=== PATIENT | male | born 1965 | race Caucasian/White ===

== ENCOUNTER 2020-07-31 03:32 | Inpatient (IN) | payer BC ==
[~2020-07-31] VITALS: Ht 188 cm; Wt 120.0 kg
--- OUTSIDE RECORDS SUMMARY | 2020-07-31 03:34 | XMS ---
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 [facility] has no Care Guidelines for this patient. Thomas VISIT COUNT (12 MO.) 1 MADISYN Gant TOTAL 1 NOTE: Visits indicate total known visits. ED/C VISIT TRACKING (12 MO.) 07/31/2020 03:32 MADISYN Celis OR TYPE: Emergency COMPLAINT: - DIFFICULTY BREATHING INPATIENT VISIT TRACKING (12 MO.) No inpatient visits to display in this time frame [email or web address]
[2020-07-31] MEDS ORDERED: ADULT ASPIRIN R81 MG PO (03:50)
[2020-07-31] MEDS ORDERED: METHYLPHENIDATE20 MG PO (03:51)
--- NOTE | 2020-07-31 06:52 | NUR ---
0615 PATIENT ARRIVED TO THE UNIT VIA STRETCHER. TRANSFERED INDEPENDENTLY TO THE BED. RT SET UP VAPOTHERM AT 25L 100% Fi02. PATIENT RR 32. O2 SATS MID 90'S. PATIENT IS TALKING IN FULL SENTANCES. LUNG SOUNDS ARE CLEAR IN UPPER LOBES WITH KIMBERLY FINE CRACKLES. NO NAUSEA. REPORTS LOOSE STOOL FOR THE LAST 2-3 DAYS. MINIMAL APPETITE. SKIN IS GROSSLY INTACT. IV SITE WNL, SL. PATIENT DENIED ANY OTHER NEEDS AT THIS TIME. AGREES TO CALL IF HE NEEDS ANYTHING.
--- NOTE | 2020-07-31 07:30 | NUR ---
TOOK REPORT ON PT. PT CURRENTLY LAYING IN BED WAITING FOR BREAKFAST. DENIES NEEDS AT THIS TIME. CALL LIGHT IN REACH. PT SITTING UP IN BED.
--- NOTE | 2020-07-31 09:50 | NUR ---
VAPOTHERN TITRATED TO 20LPM FROM 25, REMAINS 100% O2. PT PROVIED INSTRUCTION, VERBAL AND WRITTEN ON PRONEING. PT CONTINUES TO REPORT "I FEEL ALOT BETTER THAN I DID WHEN I CAME IN". PT CONTINUES TO REPORT SOB WITH ACTIVITY.
--- NOTE | 2020-07-31 10:20 | NUR ---
PT REPORTS HE IS UNABLE TO LAY IN A PRONE POSITION BUT WILL LAY LEFT AND RIGHT RECUMBENT. PT EDUCATED MULTIPLE TIMES TO THE BENIFITS OF LAYING PRONE. WILL CONTINUE TO ATTEMPT.
--- NOTE | 2020-07-31 11:30 | NUR ---
PT IN ROOM SLEEPING. CALL LIGHT IN REACH. PT LAYING ON SIDE.
--- NOTE | 2020-07-31 14:03 | EKG ---
[facility] [address] [facility] [place] [address] Signed Sinus rhythm with premature atrial complexes with aberrant conduction Otherwise normal ECG No previous ECGs available Confirmed by DONOVAN MITTAL MD ([id number]) on 07/31/2020 2:03:51 PM Electronically Signed By: DONOVAN MITTAL MD 07/31/20 1403 PATIENT NAME: ARCELIA MCCLAIN Electrocardiogram DATE OF : 65 PHYSICIAN: DONOVAN MITTAL MD REPORT #: [id number] REPORT IS CONFIDENTIAL AND NOT TO BE RELEASED WITHOUT AUTHORIZATION
--- NOTE | 2020-07-31 14:08 | NUR ---
PT IN ROOM WATCHING TV. PT LATING IN BED WITH CALL LIGHT IN HAND. DENIES NEEDS AT THIS TIME.
--- NOTE | 2020-07-31 15:40 | NUR ---
UPDATE RECVD FROM LV BOOTH. PATIENT REMAINS ON VAPOTHERM AND ATTEMPTING TO PRONE. PER LV BOOTH NO MENTION OF DISCHARGE AT THIS TIME. WILL FOLLOW UP WITH PATIENT TOMORROW.
--- NOTE | 2020-07-31 16:33 | NUR ---
DR. TUBBS CALLS TO REQUEST THAT PT BE PLACED ONTO CPAP FOR LONG HE TOLERATES, THEN MOVE BACK TO VAPO-THERM NEEDED. RT CALLED.
--- NOTE | 2020-07-31 17:02 | NUR ---
PT PLACED ON CPAP BY RT AT 15, 60%. PT ENCOURAGED TO LAY RECUMBENT WITH REPOSITIONING AND PRONING.
--- NOTE | 2020-07-31 17:38 | NUR ---
PT LAYING ON SIDE CURRENTLY ON CPAP SLEEPING 15, 60%. RESP RATE DOWN TO 20, SAO2 97%.
--- NOTE | 2020-07-31 19:15 | NUR ---
SHIFT REPORT RECEIVED FROM LV BOOTH. PT RESTING IN BED, CPAP ON. NO NEEDS AT THIS TIME. CALL LIGHT IN REACH.
--- NOTE | 2020-07-31 20:10 | NUR ---
ASSESSMENT, VS AND I&O COMPLETED. GCS 15, A&O X4. LUNGS HAVE EXPIRATORY WHEEZING IN UPPER LOBES AND DIMINISHED IN LOWER LOBES. HEART TONES REGULAR, HR SR @ 74. ABD SOFT, NONTENDER, PT STATES NORMAL, BOWEL TONES ACTIVE. CMS INTACT. IV WNL, CDI, FLUSHED WELL, REINFORCED WITH TAPE. PT ON CPAP, TOLERATING WELL. SKIN WAR, DRY AND APPROPRIATE COLOR. PT DENIES NEEDS AT THIS TIME. CALL LIGHT IN REACH.
--- NOTE | 2020-07-31 21:30 | NUR ---
PT RESTING IN BED, CPAP ON HR SR @ 74. SPO2 94% ON CPAP. CALL LIGHT IN REACH.
--- NOTE | 2020-07-31 21:59 | NUR ---
PT RESTING IN BED, CPAP ON. URINAL EMPTIED. ICE WATER PROVIDED. NO OTHER NEEDS. CALL LIGHT IN REACH.
--- NOTE | 2020-08-01 00:15 | NUR ---
ASSESSMENT, VS AND I&O COMPLETED. LUNGS CLEAR IN UPPER LOBES AND DIMINISHED IN LOWER LOBES. HR SR @ 60. GCS 15, A&O X4. PT ON CPAP, TOLERATING WELL. ABD SOFT, NONTENDER, BOWEL TONES ACTIVE. IV WNL. CMS INTACT. SKIN WAR, DRY APPROPRIATE COLOR. NO OTHER NEEDS AT THIS TIME. CALL LIGHT IN REACH.
--- NOTE | 2020-08-01 00:22 | NUR ---
PT USING URINAL AND HAS CPAP OFF, SPO2 DROPS TO 79% ON RA. PT PLACED BACK ON CPAP AND SPO2 RISES TO 95%. NO OTHER NEEDS. CALL LIGHT IN REACH.
--- NOTE | 2020-08-01 01:16 | NUR ---
PT RESTING IN BED, RR 22 ON CPAP. CALL LIGHT IN REACH.
--- NOTE | 2020-08-01 02:30 | NUR ---
PT RESTING IN BED, EYES CLOSED. RR EVEN @ 22, SPO2 95% ON CPAP. HR SR @ 64. CALL LIGHT IN REACH.
--- NOTE | 2020-08-01 04:18 | NUR ---
ASSESSMENT, VS AND I&O COMPLETED. PT DENIES PAIN. GCS 15, A&O X4. LUNGS CLEAR IN UPPER LOBES, DIMINISHED IN LOWER LOBES. HR SR @ 66. PT ON CPAP, TOLERATING WELL. ABD SOFT, NONTENDER, BOWEL TONES ACTIVE. CMS INTACT. IV WNL. SKIN WARM, DRY, APPROPRIATE COLOR. NO OTHER NEEDS AT THIS TIME. CALL LIGHT IN REACH.
--- NOTE | 2020-08-01 05:27 | NUR ---
PT RESTING IN BED, EYES CLOSED. RR 22, SPO2 95% ON CPAP. CALL LIGHT IN REACH.
--- NOTE | 2020-08-01 06:11 | NUR ---
LABS DRAWN AND SENT TO LAB. PT ASKS FOR A BREAK FROM CPAP. PT PLACED ON VAPOTHERM 25L @ 80%. PT SPO2 91%. PT EDUCATION PROVIDED CONCERNING PRONE POSITION. PT STATES HE CAN'T TURN HIS HEAD TO THE SIDE FAR ENOUGH TO BE PRONE. PT ENCOURAGED TO CHANGE POSITION SIDE TO SIDE. NO OTHER NEEDS AT THIS TIME. CALL LIGHT IN REACH.
--- NOTE | 2020-08-01 07:02 | NUR ---
SPO2 88-89% ON VAPOTHERM 25L @ 80%. PT PROVIDED I.S. AND EDUCATION, PT POSITIONED TO SIDE. VAPOTHERM 25L @ 100%, SPO2 IS 92% NO OTHER NEEDS. CALL LIGHT IN REACH.
--- NOTE | 2020-08-01 08:16 | NUR ---
PT IS AWAKE AND ALERT X4 SITTING UP IN BED. PT DENIES PAIN, NAUSEA, AND SOB OTHER THAN AFTER COUGHING. PT SERVED BREAKFAST AND BROUGHT ADDITIONAL ICE WATER. PT IS ON VAPOTHERM 25/100 AT THIS TIME AND SATS ARE 92%. PT HAS CALL LIGHT, CELL PHONE, AND REMOTE ALL WITHIN REACH. PT ABLE TO TAKE MEDICATIONS EASILY. PT IS COOPERATIVE AND POLITE. ROOM CLEANED, ALL GARBAGE PICKED UP. PT VITALS ARE WNL. PT DENIES ANY OTHER NEEDS AT THIS TIME.
--- NOTE | 2020-08-01 08:25 | NUR ---
RESP THERAPY KEN IS IN THE ROOM.
--- NOTE | 2020-08-01 10:11 | NUR ---
PATIENT HAD A POOR APPETITE PRIOR TO ADMISSION MOST LIKELY DUE TO COVID. HE IS EATING BETTER NOW ON A REGULAR DIET HERE. BMI IS 33.9 (OBESE CLASS 1). CONTINUE REGULAR DIET. NO NUTRITION INTERVENTION NEEDED AT THIS TIME.
--- NOTE | 2020-08-01 10:20 | NUR ---
DR. TUBBS ROUNDING ON PT AND IS AT BEDSIDE.
--- NOTE | 2020-08-01 11:50 | NUR ---
PT APPEARS TO BE SLEEPING SOUNDLY AT THIS TIME. VITALS ARE WNL, NOTED PT RESP RATE IS 31, HOWEVER O2 SAT IS 96%
--- NOTE | 2020-08-01 12:24 | NUR ---
DUE TO PRECAUTIONS, I AM UNABLE TO VISIT PT AT THIS TIME. WILL FOLLOW
--- NOTE | 2020-08-01 12:30 | NUR ---
THIS RN IN TO SEE PATIENT AND ORDER LUNCH. PATIENT DENEID WANTING LUNCH. PATIENT AGREEABLE TO A PROTIEN MILK SHAKE. URINAL EMPTIED. PATIENT DENIES ANY OTHER NEEDS AT THIS TIME. WILL CONTINUE TO CLOSELY MONITOR.
--- NOTE | 2020-08-01 13:22 | NUR ---
PT REMAINS ALERT AND ORIENTED X4. MILKSHAKE WITH PROTIEN POWDER ADDED DELIVERED TO PT. PT DENIES PAIN, NAUSEA, AND SOB WHILE AT REST. CALL LIGHT IS WITHIN REACH. PT IS COOPERATIVE AND POLITE. PHYSICAL ASSESSMENT WNL, OTHER THAN RESP COMPROMISE.
--- NOTE | 2020-08-01 16:14 | NUR ---
PT IN THE BED SITTING UP AT THE SIDE. TAKEN OFF VAPOTHERM AN ON 5L VIA NC TO AMBULATE TO THE BATHROOM FOR SELF CARES. PT DESATS TO MID 80'S WITH NASAL CANULA. PT IS STEADY ON HIS FEET, HOWEVER REPORTS FATIGUE. ALL LINENS ON BED CHANGED. STANDBY ASSIST WITH AMBULATION.
--- NOTE | 2020-08-01 16:25 | NUR ---
WHILE PT AMBULATING BACK TO BED AFTER DOING ADL'S HE DESAT'S TO 59% WHILE ON 5L VIA NC. PT REPORTS "I GUESS I AM MORE SICK THAN I THOUGHT". PT STILL ABLE TO WALK AND TALK, COLOR REMAINS GOOD. EXPIDITED PT QUICKLY BED.
--- NOTE | 2020-08-01 16:35 | NUR ---
PT BACK TO BED AND PLACED ON BIPAP. PT O2 SAT RECOVERS IN ABOUT 30-60 SECONDS.
--- NOTE | 2020-08-01 17:10 | NUR ---
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 Daughter is involved with his health due to COPD. Pt having difficulty sob when I visited CCU. Plan is to return to home when remdesiver complete and medically cleared.
--- NOTE | 2020-08-01 18:02 | NUR ---
PT BACK ON VAPOTHERM 25/100 FROM CPAP FOR DINNER. PT IS ALERT AND ORIENTED X4. PT DENIES NAUSEA. IV SITE REMAINS INTACT, NO REDNESS OR SWELLING NOTED, FLUSHES EASILY. PT HAS CALL LIGHT AND CELL PHONE WITHIN REACH. PT ASSISTED TO SIT UP IN BED AND SERVED DINNER. PT IS COOPERATIVE AND POLITE.
--- NOTE | 2020-08-01 18:45 | NUR ---
PT IS LOUDLY TALKING ON HIS CELL PHONE.
--- NOTE | 2020-08-01 19:25 | NUR ---
REPORT RECEIVED, CARE OF PATIENT ASSUMED AT THIS TIME. PATIENT RESTING IN BED ON VAPOTHERM, BREATHING EVEN AND UNLABORED SPO2 = 95 PERCENT. CALL LIGHT WITHIN REACH. DENIES FURTHER NEEDS AT THIS TIME.
--- NOTE | 2020-08-01 20:52 | NUR ---
assessment and medication administration completed at this time. pt alert and oriented, denies any pain or shortness of breath at rest. Pt saturations at 95 percent on vapotherm. Discussed the importance of proning and side lying positions. Pt turned to left side lying position at this time. Cpap now in place. care plan for evening established, all questions answered. call light within reach. will closely monitor.
--- NOTE | 2020-08-01 22:35 | NUR ---
PT ASLEEP WITH CPAP IN PLACE. SPO2=96%, RESPIRATIONS EVEN BUT LABORED AT 26/ MIN. CALL LIGHT WITHIN REACH. NO ASSESSED NEEDS AT THIS TIME.
--- NOTE | 2020-08-02 00:42 | NUR ---
Pt resting on left side, cpap in place, spo2 = 97 percent, RR= 25. call light within reach. will continue to monitor.
--- NOTE | 2020-08-02 01:45 | NUR ---
Pt up to void, saturations into the 80s with exertion on Cpap. NOw back in bed, spo2 =98 percent. rr =25. call light wihtin reach. will continue to monitor.
--- NOTE | 2020-08-02 03:12 | NUR ---
assessment completed. pt laying on right side on cpap. saturations at 100 percent. denies pain, shortness of breath or discomfort. lungs sound dim in the bases but no other adventitous sounds noted. rr = 28 percent. cold water provided. call light within reach. Denies further needs at this time.
--- NOTE | 2020-08-02 05:00 | NUR ---
STAFF IN ROOM TO DUMP PT URINAL AND PROVIDE PT WITH FRESH WATER. DENIES FURETHER NEEDS AT THIS TIME.
--- NOTE | 2020-08-02 06:14 | NUR ---
in room to draw labs. pt switched from cpap to vapotherm. denies feeling short of breath. spoe 95 percent at this time. respirations even but labored. lungs sound clear throughout. call lgith within reach. denies further needs at this time.
--- NOTE | 2020-08-02 08:28 | NUR ---
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 PT LAYING ON HIS LEFT SIDE UPON PRESENTATION TO ROOM, BUT ABLE TO READJUST IN BED AND SIT HIMSELF UP. PT IN GOOD SPIRITS THIS AM. ASSESSMENT COMPLETE. FINE CRACKLES NOTED IN LOWER LUNG GOMEZ. 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 BREAKFAST BROUGHT TO PATIENT. SPECIFICALLY DISCUSSED THE BENEFITS OF PRONING AND SIDE LYING, AND PATIENT AGREES TO TRY AND DO THIS MUCH POSSIBLE. PT'S DAUGHTER BRINGS IN HIS CLOTHING. PT NOW EATING BREAKFAST AND WILL START PT'S REMDESEVIR ONCE HE IS FINISHED EATING DUE TO SITE OF IV. CALL LIGHT WITHIN REACH. NO FURTHER NEEDS AT THIS TIME.
--- NOTE | 2020-08-02 09:04 | NUR ---
IN PATIENT'S ROOM FOR REMDESEVIR INFUSION. PT'S VAPOTHERM SETTINGS CHANGED TO 40L AND 100%. WILL ATTEMPT TO WEAN DOWN FI02 TODAY WHILE KEEPING THE FLOW INCREASED. PT UPDATED ON THIS PLAN. PT ATE 100% OF HIS BREAKFAST AND TOLERATED WELL. DENIES FURTHER NEEDS. ALSO DISCUSSED THE NEED FOR PATIENT TO WEAR THE CPAP TODAY MUCH POSSIBLE WHEN HE IS RESTING.
--- NOTE | 2020-08-02 09:44 | NUR ---
PATIENT'S IV REMDESEVIR COMPLETE AND PT SALINE LOCKED. PT NOW RESTING IN BED AND PLACED ON CPAP AT 60%, CPAP OF 15. PT RESTING ON LEFT SIDE. SP02 IS 97% ON THIS.
--- NOTE | 2020-08-02 10:19 | NUR ---
PATIENT OFF CPAP NOW AT THIS TIME AFTER VOIDNG. PT STATES, "IT WAS TOO FORECEFUL ALMOST, AND DIDN'T ALLOW ME TO TAKE A FULL BREATH IT DIDN'T SEEM LIKE." WILL DISCUSS WITH RT. PT PLACED BACK ON VAPOTHERM AT 40L AND 90% AT THIS TIME.
--- NOTE | 2020-08-02 10:49 | NUR ---
DR. TUBBS IN ROOM TO SEE PATIENT. FI02 TURNED DOWN TO 75% AND 35 L. PLAN OF CARE RESUMED.
--- NOTE | 2020-08-02 11:35 | NUR ---
PATIENT RESTING IN SEMI FOWLERS POSITION AT TIME ON VAPOTHERM. SP02 IS 95% ON 75% AND 35 L OF FLOW. PT NOT VERY HUNGRY FOR LUNCH, BUT WANTING A PROTEIN DRINK WHICH WAS ORDERED FOR HIM. NO FURTHER NEEDS AT THIS TIME.
--- NOTE | 2020-08-02 14:03 | NUR ---
PATIENT BACK TO BED BY HIMSELF AND TOLERATED THIS WELL. SP02 REMAINS GOOD, ON 25L AND 75% VAPOTHERM. PATIENT VOIDS ANOTHER 375 ML. PATIENT AGREES TO TRY AND PRONE HIMSELF MORE. WILL CONTINUE TO MONITOR.
--- NOTE | 2020-08-02 15:00 | NUR ---
PATIENT CONTINUES TO REST IN BED. ENCOURAGED PATIENT TO LAY ON ONE SIDE OR THE OTHER DUE TO SP02 HOVERING AROUND 88% WHILE SITTING UP IN BED. CONTINUE TO MONITOR.
--- NOTE | 2020-08-02 17:19 | NUR ---
FI02 TURNED DOWN TO 70% WHEN RT WAS IN ROOM LAST. PT TOLERATING WELL THUS FAR. WILL CONTINUE TO MONITOR.
--- NOTE | 2020-08-02 18:07 | NUR ---
PATIENT SITTING UP EATING HIS DINNER AND TOLERATING WELL. SP02 HAS MAINTAINED >90% ON THE 70% FI02. HR IN THE 70s. PT DENIES FURTHER NEEDS. CONTINUE TO MONITOR.
--- NOTE | 2020-08-02 19:40 | NUR ---
Report recieved, care of Pt assumed at this time. pt resting on Vapotherm, spo2 = 93 percent. call light within reach. Denies any needs at this time.
--- NOTE | 2020-08-02 20:35 | NUR ---
RT IN ROOM AT THIS TIME GIVING TH PT A BREATHING TREATMENT. PT ON VAPOTHERM OXYGEN SATURATIONS AT 96%. PLAN ESTABLISHED TO PLACE PT ON CPAP BEFORE BED.
--- NOTE | 2020-08-02 21:30 | NUR ---
ASSESSMENT AND MEDICATION ADMINISTRATION COMPLETED. PT DENIES FEELING SHORT OF BREATH. RR=22-26. SPO2 = 95% ON VAPOTHERM. LUNGS SOUND DIMINISHED IN THE BASES WITH FINE CRACKLES NOTED IN THE LEFT LOWER BASE. PLAN OF CARE FOR EVENING DISCUSSED, ALL QUESTIONS ANSWERED. pT PLACED ON CPAP FOR SLEEP. SPO2 = 98 PERCENT. CALL LIGHT WITHIN REACH. WILL CONTINUE TO MONITOR.
--- NOTE | 2020-08-02 23:00 | NUR ---
PT RESTING ON RIGHT SIDE WITH CPAP IN PLACE. SATURATIONS 94-98%. rr=26. CALL LIGHT WITHIN REACH. NO ASSESSED NEEDS AT THIS TIME.
--- NOTE | 2020-08-03 01:27 | NUR ---
Reponded to patient call light. pt up to void, assisted with repositioning cpap. Assessment completed.Pt lungs sound dim in both bases. no crackles noted. respirations even and unlabored at this time. fresh water provided. call light within reach.no further needs at this time.
--- NOTE | 2020-08-03 04:42 | NUR ---
Pt up BSC to have a bowel movement. Oxygen saturations down to 79 percent with exertion while still on vapotherm. pt back in bed, on cpap. Took several minutes for patient to recover. Pt now at 97% Assessment completed, call light within reach. Denies further needs at this time.
--- NOTE | 2020-08-03 08:00 | NUR ---
REPORT RECEIVED FROM NIGHTSHIFT RN, PT LAYING IN BED AT THIS TIME ON CPAP AWAKE. PT. DENIES ANY NEEDS AT THIS TIME AND DENIES WANTING BREAKFAST THIS MORNING. SPO2 AT 97%, WILL CONTINUE PLAN OF CARE, CALL LIGHT IN REACH.
--- NOTE | 2020-08-03 09:30 | NUR ---
THIS RN IN TO ASSESS PT AND ADMINISTER SCHEDULED MEDICATION. PT LAYING IN BED AND IS ALERT AND ORIENTED X 3. PT DENIES SHORTNESS OF BREATH AT THIS TIME WHEN ASKED AND IS ON THE VAPOTHERM AT 35 LPM, 70% FIO2. PT ALSO DENIES PAIN AT THIS TIME. SCHEDULED MEDICATIONS ADMINISTERED AT THIS TIME, IV MEDICATION INFUSING AT ORDERED RATE (SEE MAR). PT DENIED WANTING BREAKFAST WHEN ASKED BUT STATED YES TO A PROTEIN ENSURE, PROTEIN ENSURE PROVIDED. PT NOW LAYING ON RIGHT SIDE. PT REMINDED ON TURNING FREQUENTLY AND ON USING HIS IS AND ACAPELLA. PT REPORTS NO FURTHER NEEDS WHEN ASKED AT THIS TIME, WILL CONTINUE PLAN OF CARE. CALL LIGHT IN REACH, BED IN LOWEST POSITION, PT ON VAPOTHERM, SPO2 96%, IV MEDICATION INFUSING ORDERED.
--- NOTE | 2020-08-03 10:24 | NUR ---
THIS RN IN TO SALINE LOCK PT. PT SITTING UP AT SIDE OF BED USING THE URINAL, SPO2 NOTED TO BE AT 88% WHILE PT IS ON VAPOTHERM AT PREVIOUS SETTINGS. PT DENIES SHORTNESS OF BREATH. IV REMDESIVIR COMPLETE, PT SALINE LOCKED. PT THEN LAYED BACK DOWN AFTER USING URINAL AND IS NOW LAYING ON HIS LEFT SIDE, VAPOTHERM LEFT ON PREVIOUS SETTINGS, SPO2 NOW 93% AND RISING. PT REPORTS NO FURTHER NEEDS WHEN ASKED AT THIS TIME AND DENIES HAVING ANY PAIN. WILL CONTINUE PLAN OF CARE. CALL LIGHT IN REACH, BED IN LOWEST POSITION.
--- NOTE | 2020-08-03 11:59 | NUR ---
PT CHECKED ON AT THIS TIME. PT CURRENTLY ON CPAP, SPO2 AT 97%. PT DENIES WANTING TO EAT LUNCH AT THIS TIME AND DENIES WANTING A PROTEIN SHAKE AT THIS TIME. PT REPORTS NO NEEDS AT THIS TIME WHEN ASKED, WILL CONTINUE PLAN OF CARE. CALL LIGHT IN REACH.
--- NOTE | 2020-08-03 12:25 | NUR ---
THIS RN IN TO ASSESS PT AND TAKE VITALS. PT LAYING ON RIGHT SIDE IN BED SLEEPING ON CPAP INITIALLY AT 60% FIO2. PT AWOKE EASILY, VITALS TAKEN AT THIS TIME AND PT ASSESSED. PT FINISHED HIS PROTEIN SHAKE BUT DENIES WANTING ANY LUNCH AT THIS TIME. PT AGAIN DENIES WANTING ANOTHER PROTEIN ENSURE/SHAKE WELL. PT DENIES PAIN AT THIS TIME WHEN ASKED. PT ABLE TO SIT UP FOR ASSESSMENT AND WENT BACK TO A SIDE LYING POSITION ON HIS R SIDE AFTERWARDS. PT REPORTS NO FURTHER NEEDS WHEN ASKED AT THIS TIME AND IS STILL ON THE CPAP, SP02 AT 98%. CALL LIGHT IN REACH, WILL CONTINUE PLAN OF CARE.
--- NOTE | 2020-08-03 14:42 | NUR ---
THIS RN IN TO CHECK ON PT. PT SITTING UP IN BED AWAKE AND ALERT ON THE BIPAP AND HAS JUST FINISHED USING THE URINAL. PT STATED HE WANTED TO ORDER DINNER FOR LATER, THIS RIN TOOK PT'S DINNER ORDER FOR HIM. PT REPORTS NO FURTHER NEEDS WHEN ASKED AT THIS TIME, WILL CONTINUE PLAN OF CARE. CALL LIGHT IN REACH, PT ON CPAP, SPO2 AT 95%.
--- NOTE | 2020-08-03 16:10 | NUR ---
THIS RN IN TO ASSESS PT AND TAKE VITALS. PT AWAKE AND ALERT SITTING UP IN BED ON THE BIPAP. PT DENIES PAIN AND DENIES SHORTNESS OF BREATH AT THIS TIME. PT PROVIDED WITH ICE WATER AND URINAL EMPTIED AT THIS TIME. PT ASSESSED AT THIS TIME, VITALS TAKEN. PT REPORTS NO FURTHER NEEDS AT THIS TIME AND STATES HE WILL INFORM ME WHEN HE WANTS TO SWITCH OVER TO THE VAPOTHERM. WILL CONTINUE PLAN OF CARE, CALL LIGHT IN REACH, BED IN LOWEST POSITION, BIPAP IN PLACE, SPO2 AT 97%.
--- NOTE | 2020-08-03 17:50 | NUR ---
THIS RN IN TO CHECK ON PT AND BRING PT HIS DINNER. PT LAYING IN BED ON VAPOTHERM AT 35LPM 70% FIO2. PT DENIES SHORTNESS OF BREATH AT THIS TIME. PT REPORTS NO FURTHER NEEDS AT THIS TIME AND IS NOW EATING HIS DINNER, URINAL EMPTIED AT THIS TIME, WILL CONTINUE PLAN OF CARE. CALL LIGHT IN REACH, BED IN LOWEST POSITION, PT SPO2 AT 94% ON VAPOTHERM.
--- NOTE | 2020-08-03 19:30 | NUR ---
REPORT RECIEVED, CARE OF PATIENT ASSUMED AT THIS TIME. PT RESTING ON CPAP, CALL LIGHT WITHIN REACH. NO ASSESSED NEEDS AT THIS TIME.
--- NOTE | 2020-08-03 21:15 | NUR ---
ASSESSMENT COMPLETED. PT TOOK OFF CPAP TO DRINK WATER AND TALK. O2 SATS DOWN INTO THE MID 80S AND RESPIRATORY RATE INCREASED TO 30. LUNGS SOUND DIM IN ALL AIR GOMEZ WITH FINE CRACKLES NOTED IN THE BASES. PT COMPLAINS OF ACID REFLUX, GIVEN TUMS AT THIS TIME. PT BACK ON CPAP. SATURATIONS IN THE MID 90S. CALL LIGHT WITHIN REACH. FRESH WATER PROVIDED. NO FURTHER NEEDS AT THIS TIME.
--- NOTE | 2020-08-03 21:46 | NUR ---
RESPONDED TO PATIENT CALL LIGHT. ASSISTED PT WITH REPOSTIONING CPAP. NO FURTHER NEEDS.
--- NOTE | 2020-08-04 | NUR ---
Assessment completed. Pt up to use urinal. desaturated to 88% with exertion on cpap. RR= 32. pt now back in bed, Cpap in place respirations 22-24, spoe = 96%. Lung sounds dim throughout, no crackles noted a this time. call light within reach, no further needs at this time.
--- NOTE | 2020-08-04 02:53 | NUR ---
pt resting with eyes closed, breathing even and unlabored. rr=25 spo2 = 94% on room air.
--- NOTE | 2020-08-04 05:15 | NUR ---
ASSESSMENT COMPLETED AND LABS DRAWN. PT STATES HE FEELS BETTER THIS MORNING, LESS SHORT OF BREATH THAN THE NIGHT BEFORE. DISCUSSED PLAN OF CARE FOR THE DAY. ALL QUESTIONS ANSWERED. CALL LIGHT WITHIN REACH. NO FURTHER NEEDS AT THIS TIME.
--- NOTE | 2020-08-04 07:33 | NUR ---
REPORT REC'D FROM CARBIDE OPERATOR AND PLAN OF CARE RESUMES. PATIENT PLACED CALL LIGHT ON AND STATES HE'S READY FOR BREAKFAST. BREAKFAST ORDERED FOR PATIENT. PATIENT CURRENTLY ON THE CPAP AND SP02 IS 94%. PT ABLE TO DISCONNECT AND RECONNECT HIMSELF TO THIS CPAP INDEPENDENTLY. HR IN THE 50-60s AT THIS TIME. PT STATES HE IS "DOING OKAY" OVERALL WHEN ASKED. FURTHER ASSESSMENT TO BE COMPLETE UPON ENTRY INTO ROOM.
--- NOTE | 2020-08-04 08:20 | NUR ---
Update from RN, pt is on Vapotherm at 35L/70%. Pt resting. No change in plan for dc.
--- NOTE | 2020-08-04 08:35 | NUR ---
ASSESSMENT COMPLETE. FIO2 DECREASED TO 60% AND PT TOLERATED THUS FAR. WILL CONTINUE TO ATTEMPT TO TITRATE DOWN TOLERATED. PT SHAVED PER HIS REQUEST. PLAN OF CARE DISCUSSED WITH PATIENT.
--- NOTE | 2020-08-04 10:48 | NUR ---
DR. TUBBS IN ROOM TO SEE PATIENT. PATIENT HAS BEEN RESTING AND CONTINUES TO TOLERATE THE LOWER FI02 OF 60%. SP02 IS CURRENTLY 95%. WILL CONTINUE TO MONITOR.
--- NOTE | 2020-08-04 12:49 | NUR ---
IN PATIENT'S ROOM FOR ASSESSMENT AND VITALS. PT UP TO CHAIR AND TOLERATED THIS ACTIVITY WWELL W/O DYSPNEA. PT'S LINENS CHANGED. PT WAS GIVEN A PARTIAL BEDBATH EARLIER. PT NOT WANTING TO WEAR A GOWN. FI02 DECREASED TO 55% AND SP02 IS 93%. WILL CONTINUE TO MONITOR.
--- NOTE | 2020-08-04 14:34 | NUR ---
PT ON PRECAUTIONS DUE TO COVID 19. WILL FOLLOW ABLE
--- NOTE | 2020-08-04 14:40 | NUR ---
PATIENT GETS HIMSELF BACK INTO BED INDEPENDENTLY AND SP02 HOVERS AROUND 87-88% FOR A FEW MINUTES, BUT IS STARTING TO COME BACK UP. PATIENT LAYING IN RIGHT SIDE IN BED. PT HAS VOIDED AND WILL EMPTY THIS UPON RE-ENTRY TO ROOM. PT DENIES FURTHER NEEDS AND APPEARS TO BE BREATHING COMFORTABLY W/O DISTRESS. CONTINUE TO MONITOR.
--- NOTE | 2020-08-04 16:49 | NUR ---
PATIENT CONTINUES TO REST IN BED AT THIS TIME. PT REMAINS ON 55% AND 35 L. PT LAYING ON RIGHT SIDE. WILL DELIVER PATIENT'S FOOD TO HIM AND PERFORM EVENING ASSESSMENT AT SAME TIME. PT DENIES FURTHER NEEDS WHEN TALKING WITH PATIENT FROM DOOR.
--- NOTE | 2020-08-04 18:29 | NUR ---
THIS RN IN TO ADMINSTER ORDERED MEDICATION. PT LAYING IN BED ON VAPOTHERM ALERT AND ORIENTED. SCHEDULED MEDICATION ADMINISTERED AT THIS TIME, PT THEN SALINE LOCKED. PT REPORTS NO FURTHER NEEDS AT THIS TIME, DINNER FINISHED BY PT. WILL CONTINUE PLAN OF CARE. CALL LIGHT IN REACH, BED IN LOWEST POSITION.
--- NOTE | 2020-08-04 20:48 | NUR ---
ASSESSMENT AND MEDICATION ADMINISTRATION COMPLETED. PT SITTING UP AT SIDE OF BED ON VAPOTHERM SATURATIONS 92 PERCENT. DISCUSSED PLAN OF CARE FOR EVENING. ALL QUESTIONS ANSWERED. PT NOW ON CPAP, FIO2 DECREASED TO 55%M SATURATIONS AT 97 PERCENT AT THIS TIME. PT MAKING LARGE AMOUNTS OF DILUTE URINE. FINE CRACKLES NOTED IN LEFT LOWER AIRFIELD, UPPER AIRWAYS CLEAR. WILL CONTINUE TO MONITOR.
--- NOTE | 2020-08-04 21:39 | NUR ---
pT RESTING WITH EYES CLOSED ON RIGHT SIDE. CPAP IN PLACE. [id number], [id number]. CALL LIGHT WITHIN REACH. NO FURTHER NEEDS
--- NOTE | 2020-08-04 23:30 | NUR ---
PT REMAINS ASLEEP ON CPAP. SATURATIONS I93-96% RESPIRATIONS EVEN AND UNLABORED. HEART RATE 55-65 AT REST. CALL LIGHT WITHIN REACH. NO FURTHER NEEDS AT THIS TIME.
--- NOTE | 2020-08-05 01:30 | NUR ---
ASSESSMENT COMPLETED, PT RESTING ON CPAP BREATHING EVEN AND UNLABORED. DENIES PAIN, DISCOMFORT OR SHORTNESS OF BREATH. NO CRACKLES NOTED ON AUSCULATION OF LUNGS. FRESH WATER PROVIDED. CALL LIGHT WITHIN REACH. NO FURTHER NEEDS AT THIS TIME.
--- NOTE | 2020-08-05 04:00 | NUR ---
PT ASLEEP. CPAP IN PLACE. SATURATIONS WNL, RESPIRATIONS EVEN AND UNLABORED. CALL LIGHT WITHIN REACH. WILL CONTINUE TO MONITOR.
--- NOTE | 2020-08-05 05:25 | NUR ---
BLOOD DRAWN AND SENT TO LAB. WELL TOLERATED. ASSESSMENT COMPLETED. CRACKLES NOTED ON RIGHT UPPER AND LOWER AIR GOMEZ. PT LAYING ON RIGHT SIDE FOR MOST OF THE NIGHT. PT STATES HE SLEPT WELL AND HAS NO COMPLAINTS AT THIS TIME. CALL LIGHT WITHIN REACH. WILL CONTINUE TO MONITOR.
--- NOTE | 2020-08-05 07:43 | NUR ---
REPORT REC'D FROM HEAD OF IT. PATIENT RESTING IN BED WITH CPAP ON. PT SWITCHING SELF FROM CPAP TO VAPOTHERM INDEPENDNTLY. BREAKFAST ORDERED.
--- NOTE | 2020-08-05 07:45 | NUR ---
Update from RN. Pt remains on vapotherm, slightly better today.
--- NOTE | 2020-08-05 08:26 | NUR ---
IN PATIENT'S ROOM FOR ASSESSMENT AND VITALS, BREAKFAST, AND ROBOTICS SPECIALIST. PT RESTING IN BED, SITTING UP W/O DIFFICULTY OR SIGNS OF LABORED BREATHING. RT WAS IN ROOM PREVIOUSLY AND TITRATED VAPOTHERM DOWN TO 25L AND 45%. SP02 IS MAINTAINING >90 AND PATIENT IS SITTING UP EATING. PT STATES HE IS FEELING PRETTY GOOD THIS AM.
--- NOTE | 2020-08-05 10:09 | NUR ---
DR. TUBBS IN ROOM TO SEE PATIENT. PLAN OF CARE BEING DISCUSSED. PT VOIDING INTO URINAL. VAPOTHERM SETTINGS REMAIN 25L AND 45%. CONTINUE TO MONITOR.
--- NOTE | 2020-08-05 12:31 | NUR ---
ASSESSMENT UNCHANGED FROM PRIOR. PT TOLERATING LOWER LEVELS OF FI02 ON VAPOTHERM - CURRENTLY AT 25 L AND 45%. PT DENIES ANY SHORTNESS OF BREATH. PT UP IN ROOM AND TO CHAIR INDEPENDENTLY. PT HAS HAD A GOOD RESPONSE TO IV LASIX AND FEWER AND FEWER CRACKLES HEARD IN LUNG BASES.
--- NOTE | 2020-08-05 16:15 | NUR ---
DENIES PAIN. ASSESSMENT DONE. REMAINS ON VAPOTHERM. DENIES FEELING SHORTNESS OF BREATH. CONTINUES WITH OCC COUGH. DENIES NAUSEA. HAS BEEN TAKING WATER W/O PROBLEMS. TALKATIVE AND IN GOOD SPIRITS.
--- NOTE | 2020-08-05 17:21 | NUR ---
PATIENT SITTING UP IN BED AND EATING HIS DINNER. PT TOLERATING THIS ACTIVITY WELL, WITH SP02 OF 95% AT THIS TIME. PT HAS BEEN REQUESTING MORE WATER, HE IS LIKELY DRIED OUT FROM THE LASIX THAT WAS GIVEN EARLIER AN DHAS MORE THIRST. DENIES FURTHER NEEDS.
--- NOTE | 2020-08-05 19:30 | NUR ---
REPORT RECEIVED FROM DAYSMDFT RN. pt O2 SATS HIGH 80'S. ENCOURAGED pt TO USE IS AND DEEP BREATH. SATS INCREASED TO LOW 90'S. VAPOTHERM IN PLACE. NO REQUESTS AT THIS TIME. CALL LIGHT WITHIN REACH.
--- NOTE | 2020-08-05 20:28 | NUR ---
IN TO DO ASSESSMENT. pt RESTING IN BED. DISCUSSED POSITIONING FOR COVID, pt UNABLE TO PRONE BUT DID EXHIBIT KNOWLEDGE ABOUT SLEEPING ON HIS SIDE. LUNG SOUNDS CLEAR, DIM IN THE BASES. YELLOW URINE EMPTIED. DENIES PAIN AND SOB. NO REQUESTS AT THIS TIME. CALL LIGHT WITHIN REACH.
--- NOTE | 2020-08-05 21:24 | NUR ---
ROUNDED ON pt. LAYING ON LEFT SIDE, CPAP IN PLACE. SATS 96%.
--- NOTE | 2020-08-05 23:13 | NUR ---
ROUNDED ON pt. RESTING ON BACK IN BED WITH EYES CLOSED. CPAP IN PLACE O2 98%. CALL LIGHT WITHIN REACH.
--- NOTE | 2020-08-06 00:34 | NUR ---
CALL LIGHT ON. pt FINISHED VOIDING. ASSESSMENT DONE. NO NEEDS AT THIS TIME. YELLOW URINE EMPTIED. CALL LIGHT WITHIN REACH. NO CHANGES FROM PRIOR ASSESSMENT.
--- NOTE | 2020-08-06 02:11 | NUR ---
ROUNDED ON pt. RESTING ON LEFT SIDE. CPAP IN PLACE O2 SAT 96%
--- NOTE | 2020-08-06 04:44 | NUR ---
CALL LIGHT ON. pt HAD VOIDED. ASSESSMENT DONE. NO CHANGES. LABS DRAWN WITH ROUTINE IV ROTATION. LAC IV DC WNL. CONCENTRATED URINE EMPTIED. NO FURTHER REQUESTS AT THIS TIME. CALL LIGHT WITHIN REACH.
--- NOTE | 2020-08-06 07:45 | NUR ---
Spoke with Matt. He states he is feeling better. Cont. on vapo therm. Wanting to know when he can return to work, and we discussed his 02 need and symptoms. Expressed need for Matt to fu with his PC and they will let him know. Pt plans on dc to home when cleared medically.
--- NOTE | 2020-08-06 08:14 | NUR ---
VITALS TAKEN, STABLE. URINAL EMPTIED OF 200 MLS CONCENTRATED URINE. LUNG SOUNDS ARE CLEAR W/ THE EXCEPTION OF CRACKLES IN THE LEFT LOWER LOBE. PT SATING 90-95% ON 25 L/ 45 FiO2. PT DENIES SOB W/ MINIMAL ACTIVITY THOUGH HE DOES DESAT TO 85-88% W/ MOVEMENT. NO ACUTE CHANGES TO ASSESSMENT. BREAKFAST PROVIDED. PT DENIES PAIN OR FURTHER NEEDS. MORNING MEDICATIONS GIVEN. CALL LIGHT IN REACH.
--- NOTE | 2020-08-06 10:28 | NUR ---
CALL LIGHT DOUGING, PT REQUESTING FRESH ICE WATER. ABLE TO AMBULATE INDEPENDENTLY IN ROOM AND STEADY ON FEET. PT DENIES FURTHER NEEDS. BACK TO CHAIR TO WATCH TV.
--- NOTE | 2020-08-06 12:00 | NUR ---
IN TO COMPLETE ASSESSMENT. LUNG SOUNDS NOW CLEAR IN ALL LOBES, PT TITRATED DOWN ON VAPOTHERM TO 20 L/ 40% FiO2 SATING 89-95%. VOIDING QUANTITY SUFFICIENT. TOLERATING REGULAR DIET WELL. DENIES ANY PAIN OR NAUSEA. PT REPORTS OCCASIONAL DRY COUGH. PT HAS BEEN SELF-PRONING IN HIS BED TODAY. UNDERSTANDS PURPOSE AND IS COMPLIANT. SITTING UP ON THE SIDE OF THE BED TO EAT LUNCH NOW. VSS. NO FURTHER NEEDS AT THIS TIME.
--- NOTE | 2020-08-06 14:30 | NUR ---
IN TO EMPTY URINAL OF 850 MLS YELLOW URINE. PT HAS HAD GOOD ORAL FLUID INTAKE. IN BED PRONING W/ PILLOWS IN PLACE LYING ON RIGHT SIDE. CALL LIGHT IN REACH.
--- NOTE | 2020-08-06 14:52 | NUR ---
DUE TO COVID PRECAUTIONS I AM UNABLE TO VISIT PT. WILL FOLLOW NEEDED
--- NOTE | 2020-08-06 16:00 | NUR ---
RT IN TO TITRATE PT OFF OF VAPOTHERM. PT NOW ON 10 L HI-FLOW NC SATING 94%. TOLERATING WELL. CONTINUING TO MONITOR.
--- NOTE | 2020-08-06 17:29 | NUR ---
NO ACUTE CHANGES TO PT ASSESSMENT. LUNG SOUNDS REMAIN CLEAR. PT TITRATED DOWN FROM 10 L TO 8 L HI-FLOW NC SATING 93%. TOLERATING WELL. DENIES SOB AT REST OR W/ ACTIVITY. PT HAS BEEN AMBULATING IN ROOM INDEPENDENTLY THROUGHOUT DAY, STEADY ON FEET. DENIES FURTHER NEEDS. SITTING UP IN CHAIR EATING DINNER. CALL LIGHT IN REACH. PT CALLS APPROPRIATELY.
--- NOTE | 2020-08-06 19:33 | NUR ---
RECEIVED REPORT FROM [facility]. pt SITTING ON THE SIDE OF THE BED. NO REQUESTS AT THIS TIME. CALL LIGHT WITHIN REACH. ON 8L O2 VIA HIGH FLOW CANNULA, O2 SAT 88% TO 92%.
--- NOTE | 2020-08-06 20:22 | NUR ---
IN TO DO ASSESSMENT. pt SITTING IN BED. SATS HIGH 80'S TO 92% ON 8L VIA HIGH FLOW NC. TITRATED UP TO 10L, pt SATS LOW 90'S. LUNGS CLEAR. NO EDEMA NOTED. pt DENIES PAIN AND SOB AT THIS TIME. EDUCATION DONE ON OXYGEN AND COVID. ALL QUESITONS ANSWERED. CALL LIGHT WITHIN REACH.
--- NOTE | 2020-08-06 21:25 | NUR ---
pt HAD SATS IN LOW 80'S UNSUSTAINED. ROUNDED, LAYING ON RIGHT SIDE, USING NC. WOKE TO VOICE. PLACED ON CPAP 50%.
--- NOTE | 2020-08-06 21:51 | NUR ---
SATS MAINTAINED ABOVE 95%. TITRATED CPAP SETTINGS TO 45%.
--- NOTE | 2020-08-06 22:12 | NUR ---
SATS REMAIN 95% OR ABOVE. TITRATED CPAP TO 40%. pt RESTING ON LEFT SIDE. EYES CLOSED, CPAP IN PLACE. RESPIRATIONS 24. CALL LIGHT WITHIN REACH.
--- NOTE | 2020-08-07 00:11 | NUR ---
ROUNDED ON pt. RESTING IN BED ON BACK WITH CPAP IN PLACE. RR 25, O2 SAT 96%. CPAP 40%. CALL LIGHT WITHIN REACH.
--- NOTE | 2020-08-07 02:56 | NUR ---
ROUNDED ON pt. RESTING ON LEFT SIDE. RESPIRATIONS REGULAR RATE 24. CPAP ON. O2 SAT MID 90'S. CALL LIGHT WITHIN REACH.
--- NOTE | 2020-08-07 04:43 | NUR ---
O2 SAT MONITOR NOT READING. IN TO CHANGE CABLES. pt WOKE TO VOICE. ASSESSMENT DONE. NO REQUESTS AT THIS TIME. NO CHANGES IN ASSESSMENT. DENIES PAIN AND SOB. ON CPAP AT THIS TIME. YELLOW URINE EMPTIED. PROVIDED FRESH WATER. CALL LIGHT WITHIN REACH. O2 SAT MID TO HIGH 90'S.
--- NOTE | 2020-08-07 06:36 | NUR ---
ROUNDED ON pt. RESTING ON BACK WITH EYES CLOSED, RESPIRATIONS REGULAR RATE 22. O2 SAT 98%. CALL LIGHT WITHIN REACH.
--- NOTE | 2020-08-07 07:15 | NUR ---
ROUNDED ON pt. SITTING UP IN BED. CPAP OFF 89% O2 SAT. PLACED ON 1L NC SAT 93%. URINAL EMPTIED. NO FURTHER REQUESTS AT THIS TIME. CALL LIGHT WITHIN REACH.
--- NOTE | 2020-08-07 07:19 | NUR ---
TOOK REPORT FROM ZACK BOOTH. PT CURRENTLY ON 1L NC. DENIES NEEDS AT THIS TIME.
--- NOTE | 2020-08-07 07:21 | NUR ---
BREAKFAST ORDERED FOR PT.
--- NOTE | 2020-08-07 10:07 | NUR ---
PT IN ROOM WATCHING TV. O2 CURRENTLY 2L NC. PT DENIES SOB. DENIES NEEDS AT THIS TIME.
--- NOTE | 2020-08-07 10:40 | NUR ---
Notified by staff pt is dressed and wanting to go home. He was weaned to 022l. They will notify RT for 02 qualifier. Spoke with Matt. He plans on dc to home and his daughter will transport. Updated to 02 qualifier need and possible need for 02 at home. He would like to use [facility] for his DME.
--- NOTE | 2020-08-07 10:50 | NUR ---
PT SELF ORDERS LUNCH AND GETS DRESSED. DENIES NEEDS AT THIS TIME. PT CURRENTLY SITTING ON SIDE OF BED.
--- NOTE | 2020-08-07 10:54 | NUR ---
DR. HEARD IN TO TALK TO PT.
--- NOTE | 2020-08-07 11:08 | NUR ---
RT CALLED FOR HOME O2 QUALIFY.
[2020-08-07] MEDS ORDERED: DEXAMETHASONE4 MG PO (11:12)
--- NOTE | 2020-08-07 11:45 | NUR ---
PT QUALIFIES FOR HOME O2 PER RT. CASE MANAGMENT NOTIFIED.
--- NOTE | 2020-08-07 12:27 | NUR ---
Face sheet, order, o2 qualifier, dc summary, [facility] Called and spoke with Romina and she will call me back. 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
--- NOTE | 2020-08-07 13:00 | NUR ---
ecjaylinved call from [facility]. Their client service and consulting manager will deliver 02 to pts home and are on their way. Will arrive in approx. 1 hour and will meet pt's daughter at his home to set, then daughter will pick pt up. 02 portable taken to [facility]U for pt to use on dc to home. Staff are making fu appt with Dr. Burkett. Spoke with pt and he denies needs.
--- NOTE | 2020-08-07 13:56 | NUR ---
PT D/C HOME WITH EDUCATION AND PLAN TO F/U WITH PCP ON . F/U APPT. MADE. PT GOING HOME ON O2 AND IS PROVIDED EDUCATION. PT DENIES NEEDS AT THIS TIME.
--- NOTE | 2020-08-07 13:58 | NUR ---
PT CURRENTLY WAITING ON TRANSPORT FROM [facility].
--- NOTE | 2020-08-07 14:15 | NUR ---
AM UNABLE TO VISIT PT DUE TO PRECAUTIONS AND I WAS INFORMED THAT PT WILL DC LATER TODAY. WILL FOLLOW NEEDED
--- NOTE | 2020-08-07 14:16 | NUR ---
PT LEFT HOSPITAL VIA W/C AND WAS TAKEN HOME BY DAUGHTER. PT SENT WITH O2 TANK AND HAS O2 WAITING AT HOME. DENIES NEEDS AT THIS TIME.
== END 2020-08-07 14:10 | disposition home or self-care (01) | DRG 177 ==
LOC: ED 03:32 → CCU 05:47
PROVIDERS: ADMIT Internal Medicine; ATTEND Internal Medicine
PROC: 5A09357 Assistance with Respiratory Ventilation, Less than 24 Consecutive Hours, Continuous Positive Airway Pressure (ICD-10-PCS; principal; 2020-07-31)
DX: U07.1 COVID-19 (principal); J12.82 Pneumonia due to coronavirus disease 2019; J12.81 Pneumonia due to SARS-associated coronavirus; J96.01 Acute respiratory failure with hypoxia; E87.1 Hypo-osmolality and hyponatremia; K75.2 Nonspecific reactive hepatitis; G47.33 Obstructive sleep apnea (adult) (pediatric); Z87.891 Personal history of nicotine dependence; Z87.820 Personal history of traumatic brain injury
CPT/HCPCS: 36600; 71045; 71260; 80048; 80053; 82803; 83735; 84484; 85025; 93005; 93010; 94640; 94660; 94667; 94761; 94799; 99285-25; J1650; J1940; J2930; J7030; J7050; J8540

== ENCOUNTER 2020-11-11 07:05 | Day surgery (SDC) | payer BC ==
[~2020-11-11] VITALS: Ht 188 cm; Wt 126.8 kg
[~2020-11-11 07:05] MED LIST: ADULT ASPIRIN R81 MG PO; DEXAMETHASONE4 MG PO; METHYLPHENIDATE20 MG PO
--- NOTE | 2020-11-11 09:00 | NUR ---
11/11/20 0900 Giselle Joshua 0855-PATIENT ARRIVED TO PACU ON 2L NC AWAKE DROWSY DENIES PAIN OR NAUSEA. IVF INFUSING. ABDOMEN ROUND ENCOURAGED TO PASS GAS. IVF INFUSING. HOB ELEVATED 0900-PATIENT AWAKE DENTURES PUT IN. TAKING SIPS OF WATER
--- NOTE | 2020-11-11 11:57 | OR ---
[facility] [address], [place] [address] Signed DATE OF OPERATION: 11/11/2020 SURGEON: Simeon Mckeon MD PREOPERATIVE DIAGNOSES: 1. Guaiac-positive stool. 2. Daily aspirin use. POSTOPERATIVE DIAGNOSES: 1. 4 mm polyps at 8 and 10 cm. 2. 4 mm polyps at 4 cm. 3. 4 mm polyps at 12 cm. 4. 4 mm polyp at proximal right colon. 5. 5 mm polyp at 80 cm. 6. 4 mm polyp at 28 cm. 7. 4 mm polyp at 24 cm. 8. Minimal sigmoid diverticulosis. PROCEDURE: Colonoscopy with hot biopsy. ESTIMATED BLOOD LOSS: None. INDICATIONS: Elliot is a 55-year-old gentleman, asked to see me for his initial colonoscopy. He was colonoscopy back at age 50. More recently, he was found to be guaiac positive. He has no lower GI complaints. There is no family history of colon cancer or polyps. He does use aspirin on a daily basis. In the office, I gave him a pamphlet on colonoscopy and we looked at that together. He understands there is risk including, but not limited to gas bloating, crampy abdominal pain, bleeding, perforation requiring surgery, and missed diagnosis. We also discussed the need for IV conscious sedation. He had expressed understanding and wished to proceed. PROCEDURE NOTE: Elliot was taken into our endoscopy suite and placed in the left lateral decubitus position. He was given 7 mg of Versed and 125 mcg of fentanyl to cover the case. A digital rectal exam was performed and this was unremarkable. Prostate is minimally indurated and swollen. The adult colonoscope was introduced and advanced under direct visualization of camera into the cecum. It took some extra sedation abdominal Electronically Signed By: SIMEON MCKEON MD 11/11/20 1157 PATIENT NAME: ELLIOT MCCLAIN OPERATIVE REPORT DATE OF : 65 REPORT #: [id number] PHYSICIAN: SIMEON MCKEON MD PCP: CHAD LEGER MD REPORT IS CONFIDENTIAL AND NOT TO BE RELEASED WITHOUT AUTHORIZATION [facility] [address], [place] [address] Signed compression in order to advance the scope. His prep was quite good. We could easily see the appendiceal orifice and the ileocecal valve. The scope was then slowly withdrawn. The above-mentioned polyps were easily removed with the help of hot biopsy forceps. The sigmoid colon has very minimal diverticulosis. They were small in size, few in number, and scattered about. Once in the rectum, the scope was retroflexed and there was really no pathology above the anal canal. After this, the gas was suctioned out and the colonoscope removed. Elliot tolerated the procedure quite well. RECOMMENDATIONS: I will see Elliot back in my office in 7 to 14 days to review his results. Simeon Mckeon MD ALB/MODL /[id number] cc: MD Chad Eugene MD Copies: SIMEON MCKEON MD, RUSSELL BARR MD ~ Electronically Signed By: SIMEON MCKEON MD 11/11/20 1157 PATIENT NAME: ELLIOT MCCLAIN OPERATIVE REPORT DATE OF : 65 REPORT #: [id number] PHYSICIAN: SIMEON MCKEON MD PCP: CHAD LEGER MD REPORT IS CONFIDENTIAL AND NOT TO BE RELEASED WITHOUT AUTHORIZATION
--- NOTE | 2020-11-13 10:27 | PATH ---
[facility] [address] [facility] [place], [place] [address] Signed SPECIMEN(S): A POLYP AT 8 CM SPECIMEN(S): B POLYP AT 10 CM SPECIMEN(S): C POLYP AT 12 CM SPECIMEN(S): D PROXIMAL ASCENDING/RIGHT COLON POLYP SPECIMEN(S): E POLYP AT 80 CM SPECIMEN(S): F POLYP AT 28 CM SPECIMEN(S): G POLYP AT 24 CM SPECIMEN(S): H POLYP AT 4 CM SPECIMEN SOURCE: A. POLYP AT 8 CM B. POLYP AT 10 CM C. POLYP AT 12 CM D. PROXIMAL ASCENDING/RIGHT COLON POLYP E. POLYP AT 80 CM F. POLYP AT 28 CM G. POLYP AT 24 CM H. POLYP AT 4 CM CLINICAL HISTORY: + Cologuard. Colonoscopy. MICROSCOPIC DESCRIPTION: Histologic sections of all submitted blocks are examined by light microscopy. These findings, together with the gross examination, support the pathologic diagnosis. FINAL PATHOLOGIC DIAGNOSIS: A. Colon, polyp at 8 cm, polypectomy: - Hyperplastic polyp. - Negative for dysplasia or malignancy. B. Colon, polyp at 10 cm, polypectomy: - Hyperplastic polyp. - Negative for dysplasia or malignancy. C. Colon, polyp at 12 cm, polypectomy: - Hyperplastic polyp. - Negative for dysplasia or malignancy. D. Colon, proximal ascending/right, polyp, polypectomy: - Tubular adenoma. - Negative for high-grade dysplasia or malignancy. E. Colon, polyp at 80 cm, polypectomy: - Sessile serrated lesion. PATIENT NAME: ARCELIA MCCLAIN PATHOLOGY DATE OF : 65 REPORT #: [id number] PHYSICIAN: YOLIS CH PCP: CHAD LEGER MD REPORT IS CONFIDENTIAL AND NOT TO BE RELEASED WITHOUT AUTHORIZATION [facility] [address] [place], [place] [address] Signed - Negative for dysplasia or malignancy. F. Colon, polyp at 28 cm, polypectomy: - Cauterized hyperplastic polyp. - Negative for high-grade dysplasia or malignancy. - See comment. G. Colon, polyp at 24 cm, polypectomy: - Hyperplastic polyp. - Negative for dysplasia or malignancy. H. Colon, polyp at 4 cm, polypectomy: - Colonic mucosa with no histopathologic abnormality. - Negative for dysplasia or malignancy. COMMENT: Regarding specimen F: The degree of cautery artifact limits complete histologic evaluation for low-grade dysplasia. However, low-grade dysplasia is favored to be absent. Regarding specimen H: Multiple additional deeper levels were examined. NAL:cml:C2NR GROSS DESCRIPTION: Eight specimens are received in eight containers labeled "FP". A. The specimen, labeled "FP, 1," and designated on the requisition "8 cm polypectomy," is received in formalin and consists of five fragments of pink-yuen tissue (0.1-0.3 cm in greatest dimension). The specimen is submitted entirely in cassette (A1). B. The specimen, labeled "FP, 2," and designated on the requisition "10 cm polypectomy," is received in formalin and consists of three fragments of pink-yuen tissue (0.2-0.3 cm in greatest dimension). The specimen is submitted entirely in cassette (B1). C. The specimen, labeled "FP, 3," and designated on the requisition "12 cm polypectomy," is received in formalin and consists of two fragments of pink-yuen tissue (0.2 cm in greatest dimension). The specimen is submitted entirely in cassette (C1). D. The specimen, labeled "FP, 4," and designated on the requisition "proximal ascending/right polypectomy," is received in formalin and consists of one fragment of pink-yuen tissue (0.3 cm in greatest dimension). The specimen is submitted entirely in cassette (D1). E. The specimen, labeled "FP, 5," and designated on the requisition "80 cm polypectomy," is received in formalin and consists of two fragments of pink-yuen tissue (0.2 and 0.3 cm in greatest dimension). The specimen is submitted entirely in cassette (E1). PATIENT NAME: ARCELIA MCCLAIN PATHOLOGY DATE OF : 65 REPORT #: [id number] PHYSICIAN: YOLIS CH PCP: CHAD LEGER MD REPORT IS CONFIDENTIAL AND NOT TO BE RELEASED WITHOUT AUTHORIZATION [address] [address] Signed F. The specimen, labeled "FP, 6," and designated on the requisition "28 cm polypectomy," is received in formalin and consists of three fragments of pink-yuen tissue (0.1-0.3 cm in greatest dimension). The specimen is submitted entirely in cassette (F1). G. The specimen, labeled "FP, 7," and designated on the requisition "24 cm polypectomy," is received in formalin and consists of one fragment of pink-yuen tissue (0.2 cm in greatest dimension). The specimen is submitted entirely in cassette (G1). H. The specimen, labeled "FP, 8," and designated on the requisition "4 cm polypectomy," is received in formalin and consists of one fragment of pink-yuen soft tissue (0.3 cm in greatest dimension). The specimen is submitted entirely in cassette (H1). AC (under the direct supervision of a pathologist) The Gross Description was prepared using a voice recognition system. The report was reviewed for accuracy; however, sound-alike word errors, addition and/or deletions may occur. If there is any question about this report, please contact Client Services. PERFORMING LABORATORY: The technical component was [place] [address] ([employer] Repairer: Shu Muniz MD; CLIA# [id number]). Professional interpretation was performed by [facility] [place] [address] (CLIA# [id number]). Diagnostician: Bee Harris MD Pathologist Electronically Signed 11/13/2020 Copies: ~ PATIENT NAME: ARCELIA MCCLAIN PATHOLOGY DATE OF : 65 REPORT #: [id number] PHYSICIAN: YOLIS CH PCP: CHAD LEGER MD REPORT IS CONFIDENTIAL AND NOT TO BE RELEASED WITHOUT AUTHORIZATION
== END 2020-11-11 09:50 | disposition home or self-care (01) ==
LOC: OPS 07:05 → DS 08:15 → OPS 08:15
PROVIDERS: ATTEND Colon & Rectal Surgery
PROC: 0DBE8ZZ Excision of Large Intestine, Via Natural or Artificial Opening Endoscopic (ICD-10-PCS; principal; 2020-11-11 08:15)
DX: R19.5 Other fecal abnormalities (principal); K63.5 Polyp of colon; D12.2 Benign neoplasm of ascending colon; K57.30 Diverticulosis of large intestine without perforation or abscess without bleeding; F90.9 Attention-deficit hyperactivity disorder, unspecified type; R73.03 Prediabetes; Z79.82 Long term (current) use of aspirin; Z87.891 Personal history of nicotine dependence
CPT/HCPCS: 99153; G0500; J2250; J3010; J7121